=== PATIENT | male | born 1985 | race Caucasian/White ===

== ENCOUNTER 2016-11-12 08:05 | Emergency (ER) | payer OTHER ==
[~2016-11-12] VITALS: Ht 177.8 cm; Wt 78.0 kg
[2016-11-12] MEDS ORDERED: ONDANSETRON 2MG/ML, 2ML ONE (08:55)
[2016-11-12] MEDS ORDERED: KETOROLAC 30 MG/1 ML ONE (08:55)
[2016-11-12] MEDS ORDERED: SODIUM CHLORIDE FLUSH 10ML SYR IVF ONE (09:00)
[2016-11-12] MEDS ORDERED: SODIUM CHLORIDE 0.9% 1,000ML IV ONE (09:00)
[2016-11-12] MEDS ORDERED: ONDANSETRON 2MG/ML, 2ML IVPush ONE (09:00)
[2016-11-12] MEDS ORDERED: KETOROLAC 30 MG/1 ML IVPush ONE (09:00)
[2016-11-12 09:25] LABS: BLOOD UREA NITROGEN 23 mg/dL (7-18)
[2016-11-12] MEDS ORDERED: POTASSIUM CHLORIDE 20 MEQ TAB.ER.PRT PO ONE (10:00)
[2016-11-12 12:03] VITALS: BP 113/72
== END 2016-11-12 12:07 | disposition home or self-care (01) ==
LOC: ED 08:30
DX: N20.1 Calculus of ureter (principal)
CPT/HCPCS: 36415; 74176; 80048; 81001; 82040; 85025; 87086; 96361; 96374; 96375; 99285; J1885; J2405; J7030